=== PATIENT | male | born 1970 | race Caucasian/White ===

== ENCOUNTER 2020-09-13 21:06 | Emergency (ER) | payer OTHER ==
[~2020-09-13] VITALS: Ht 172.7 cm; Wt 81.7 kg
[2020-09-13] MEDS ORDERED: TYLENOL325 M1 PO (21:21)
[2020-09-13 22:32] LABS: INFLUENZA A ANTIGEN Negative (Negative); INFLUENZA B ANTIGEN Negative (Negative)
[2020-09-13] MEDS ORDERED: COMPAZINE5 M1 PO (23:12)
[2020-09-13 23:20] VITALS: BP 105/54
== END 2020-09-13 23:23 | disposition home or self-care (01) ==
LOC: M.ERS 21:06
PROVIDERS: Emergency Medicine
DX: G43.909 Migraine, unspecified, not intractable, without status migrainosus (principal); R68.83 Chills (without fever); R11.0 Nausea; Z20.828 Contact with and (suspected) exposure to other viral communicable diseases; Z79.899 Other long term (current) drug therapy